=== PATIENT | male | born 1975 | race Hispanic/Latino ===

== ENCOUNTER 2017-04-27 10:40 | Observation (INO) | payer BC, SELFPAY ==
[2017-04-27 11:19] LABS: #Basophils 0.1 thou/uL (0.0-0.2); #Eosinphils 0.1 thou/uL (0.0-0.7); #Lymphocytes 1.3 thou/uL (1.20-3.40); #Monocytes 0.6 thou/uL (0.11-0.59); #Neutrophils 4.6 thou/uL (1.40-6.50); %Basophils 0.9 % (0.0-1.0); %Eosinophils 1.7 % (0.0-10.0); %Lymphocytes 19.5 % (21.0-51.0); Hematocrit 44.5 % (42.0-52.0); Mean Platelet Volume 7.4 fL (7.4-10.4); Red Blood Cell (RBC) Count 4.75 mill/uL (4.70-6.10); White Blood Cell (WBC) Count 6.7 thou/uL (4.8-10.8)
[2017-04-27 11:41] LABS: ALT (SGPT) 30 U/L (8-55); AST (SGOT) 27 U/L (5-34); Alkaline Phosphatase 102 U/L (40-150); Anion Gap 11 mmol/L (10-20); BUN (Urea Nitrogen) 24 mg/dL (8.9-20.6); Bilirubin, Total 0.8 mg/dL (0.2-1.2); CK (CPK) 387 U/L (30-200); Calc. Creatinine Clearance 0 mL/min (70-130); Calcium 9.5 mg/dL (7.8-10.44); Carbon Dioxide 24 mmol/L (22-29); Chloride 105 mmol/L (98-107); Estimated GFR-MDRD 72; Globulin 2.9 g/dL (2.4-3.5); Protein, Total 7.2 g/dL (6.0-8.3)
[2017-04-27 11:44] LABS: Troponin I Less than 0.010 ng/mL (< 0.028)
[2017-04-27] MEDS ORDERED: diphenhydrAMINE 50 MG/ML VIAL ONE (11:47)
[2017-04-27] MEDS ORDERED: Metoclopramide HCl 10 MG/2 ML VIAL ONE (11:47)
[2017-04-27] MEDS ORDERED: Acetaminophen 500 MG TAB ONE (11:47)
--- NOTE | 2017-04-27 11:49 | CT ---
HEAD CT WITHOUT CONTRAST: DATE: 04/27/17. COMPARISON: 12/24/14. HISTORY: Pain and numbness, left-sided neurologic deficits and headaches. TECHNIQUE: Serial axial CT imaging at 5 mm intervals from vertex through the skull base without contrast. FINDINGS: Tie imaged paranasal sinuses/mastoid air cells are well aerated. There is no displaced calvarial fr acture. No intracranial hemorrhage, midline shift, mass effect, or ventricular enlargement. IMPRESSION: No acute findings. POS: [facility]
[2017-04-27] MEDS ORDERED: Ondansetron ODT 4 MG TAB SL PRN (16:23)
[2017-04-27] MEDS ORDERED: Ondansetron HCl/PF 4 MG/2 ML Vial IVP PRN ×2 (16:23→16:25)
[2017-04-27] MEDS ORDERED: Acetaminophen 325 MG TAB PO PRN ×2 (16:23→16:25)
[2017-04-27] MEDS ORDERED: hydrALAZINE 20 MG/ML VIAL SLOW IVP PRN (16:25)
[2017-04-27] MEDS ORDERED: ALPRAZolam 0.25 MG TAB PO PRN (16:25)
[2017-04-27] MEDS ORDERED: Ondansetron ODT 4 MG TAB PO PRN (16:25)
[2017-04-27] MEDS ORDERED: Senokot 8.6 MG TAB PO PRN (16:25)
[2017-04-27] MEDS ORDERED: Nitroglycerin 0.4 MG TAB (25 Tab Bottle) PO PRN (16:25)
[2017-04-27] MEDS ORDERED: cloNIDine 0.1 MG TAB PO PRN (16:25)
[2017-04-27 17:24] VITALS: BMI 33.1
[2017-04-27] MEDS: Sodium Chloride 0.9% 1,000 ML IV SCH (18:18)
[2017-04-27 18:55] LABS: Amphetamine Detected (NotDetected); Methadone Not Detected (NotDetected); Methamphetamine Detected (NotDetected)
[2017-04-27] MEDS ORDERED: Lorazepam 1 MG TAB PO PRN (19:01)
--- NOTE | 2017-04-27 19:05 | HP ---
DATE OF ADMISSION: 04/27/2017 PRIMARY CARE PHYSICIAN: [facility]. CHIEF COMPLAINT: Stroke-like symptoms. HISTORY OF PRESENT ILLNESS: Patient is a 41-year-old male with migraines in the past, presented to the emergency room with above complaints. This morning, the patient felt lightheaded and few hours later, he started having weakness in the le ft hand and the left foot. His symptoms progressively got worse. He had some headache that was mil d in intensity without any radiation. No double vision, blurring of vision, facial symmetry or seiz ures reported. His headache was generalized. He denies any fevers, chills or neck stiffness. No c hest pain, palpitations, lightheadedness, dizziness reported. In the emergency room, initial vital signs showed temperature 98.1, respirations 18, pulse of 70, bl ood pressure 131/80 with O2 saturation 97% on room air. His initial CT scan of the brain was negati ve for acute findings. He received aspirin in the emergency room. His EKG showed sinus rhythm with out significant ST-T wave changes. PAST MEDICAL HISTORY: 1. History of migraine in 2015. 2. History of heat stroke 4-5 years ago. SOCIAL HISTORY: Reviewed with the patient and none. ALLERGIES: Patient is allergic to IODINE. CURRENT HOME MEDICATIONS: Reviewed with the patient and none. FAMILY HISTORY: No heart disease or strokes in his family. 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 He smokes on and off. He also drinks 2-3 beers on a glory ly basis. He recently abused cocaine. REVIEW OF SYSTEMS: The following complete review of systems was negative, unless otherwise mentione d in the HPI or below: CONSTITUTIONAL: Weight loss or gain, ability to conduct usual activities. SKIN: Rash, itching. EYES: Double vision, pain. ENT/MOUTH: Nose bleeding, neck stiffness, pain, tenderness. CARDIOVASCULAR: Palpitations, dyspnea on exertion, orthopnea. RESPIRATORY: Shortness of breath, wheezing, cough, hemoptysis, fever or night sweats. GASTROINTESTINAL: Poor appetite, abdominal pain, heartburn, nausea, vomiting, constipation, or diar charleen. GENITOURINARY: Urgency, frequency, dysuria, nocturia. MUSCULOSKELETAL: Pain, swelling. NEUROLOGIC/PSYCHIATRIC: Anxiety, depression. ALLERGY/IMMUNOLOGIC: Skin rash, bleeding tendency. PHYSICAL EXAMINATION: VITAL SIGNS: As discussed above. GENERAL: A 41-year-old male in no apparent distress. HEENT: Head atraumatic, normocephalic. Sclerae are anicteric. Moist mucous membranes. No oral le ozzy. NECK: Supple, no JVD, no carotid bruit. LUNGS: Clear to auscultation bilaterally. HEART: S1, S2 present. Regular rate and rhythm. ABDOMEN: Soft, nontender, bowel sounds present. EXTREMITIES: No edema or calf tenderness. NEUROLOGIC: Cranial nerves II-XII were normal on examination. Power was 5/5 in all extremities exc ept for weakness in the left hand and the left foot along with paraesthesias. 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 Vbobrl-gy-gwth test was normal. Reflexes were equivocal. PSYCHIATRY: Alert, awake and oriented x3. SKIN: Warm and dry. LYMPH NODES: No palpable lymph nodes in the neck. PERIPHERAL VASCULAR: Radial pulses palpable bilaterally. MUSCULOSKELETAL: No joint swelling or tenderness. LABORATORY AND X-RAY FINDINGS: CBC showed WBC 6.7 with hemoglobin 15.3, hematocrit 44.5, platelet 2 92. Chemistries showed sodium 136, potassium 4, chloride 105, bicarb 24, BUN 24, creatinine 1.1, gl ucose of 108. Troponins were normal. TSH 1.1. CT scan of the brain noncontrast by my review as discussed above. EKG by my review as discussed abo ve. IMPRESSION: 1. Suspected acute cerebrovascular accident. 2. History of migraines. 3. Obesity with a BMI of 33.1. 4. Ongoing tobacco and alcohol dependence. 5. History of cocaine abuse. 6. Chronic kidney disease stage 2. PLAN: The patient will be monitored in the stroke unit. We will get MRI of the brain. Start him o n aspirin with statins. Lifestyle modification was emphasized. We will place him on alcohol withdr awal protocol. Gentle IV hydration due to slightly elevated CK and minimal elevation of BUN. We wi ll consider Neurology evaluation based on the MRI. Lifestyle modification again extensively emphasi zed. Plan of care was discussed with the patient and he stated understanding.
--- NOTE | 2017-04-27 19:51 | MRI ---
MRI BRAIN NONCONTRAST: History: TIA. Left hand numbness. FINDINGS: There is no evidence of acute intracranial hemorrhage or infarct. The ventricles appear normal in si ze, shape, and position. There is no mass effect or shift of midline structures. Tiny peripheral foc i of increased FLAIR signal are stable compared to the prior study from 2015. IMPRESSION: No acute intracranial abnormalities are demonstrated. POS: [facility]
[2017-04-27] MEDS: Famotidine 20 MG TAB PO SCH (20:44)
[2017-04-27] MEDS: Docusate 100 MG CAP PO SCH (20:44)
[2017-04-27] MEDS ORDERED: Atorvastatin Calcium 10 MG TAB PO SCH (21:00)
[2017-04-28] MEDS: Sodium Chloride 0.9% 1,000 ML IV SCH (04:17)
[2017-04-28] MEDS ORDERED: Aspirin 325 mg Enteric Coated Tablet PO SCH (09:00)
[2017-04-28] MEDS: Docusate 100 MG CAP PO SCH (09:02)
[2017-04-28] MEDS: Famotidine 20 MG TAB PO SCH (09:02)
[2017-04-28 11:43] VITALS: TEMP 98.4
--- NOTE | 2017-04-28 13:04 | DIS ---
DATE OF ADMISSION: 04/27/2017 DATE OF DISCHARGE: 04/28/2017 DISCHARGE DISPOSITION: Home. FOLLOWUP: [facility] in one week. The patient was seen and examined on the day of discharge. Denies any new complaints. Left hand we akness has somewhat improved. DISCHARGE MEDICATIONS: Aspirin 325 mg daily and Pravastatin 20 mg daily. The patient was extensively counseled to quit drug use. BRIEF HOSPITAL COURSE: Patient is a 41-year-old male with migraines in the past, presented to the hospital with stroke-like symptoms. He had weakness in his left hand and his left foot aretha g with paresthesias. Please refer to the history and physical for further details. The patient was admitted to the hospital with a diagnosis of suspected acute CVA. An MRI of the bra in was negative for acute CVA. Echocardiogram showed normal left ventricular ejection fraction of 6 0%-65% with normal diastolic dysfunction. Urine drug screen was positive for amphetamines and cocai ne. Lifestyle modification was emphasized. He was advised to continue aspirin. An outpatient Neur ology followup has been recommended. FINAL DIAGNOSES: 1. Suspected small vessel cerebrovascular accident, probably precipitated by vasospasm. 2. Polysubstance abuse. The patient was positive for cocaine and amphetamines. 3. Ongoing tobacco abuse. 4. Chronic alcohol use. 5. History of migraines. 6. Obesity with body mass index 35. 7. Chronic kidney disease stage 2. SIGNIFICANT LABORATORY DATA: Cardiac enzymes normal. TSH 1.1, fasting lipid showed triglycerides 8 8, cholesterol 155, LDL 102, HDL 35. Plan of care was discussed with the patient and he stated understanding.
[2017-04-28 13:25] VITALS: BP 129/98
[2017-04-28] MEDS ORDERED: Enoxaparin Sodium 40 MG/0.4 ML SYRINGE SC SCH (21:00)
--- NOTE | 2017-06-05 16:04 | EKG ---
Test Reason : Blood Pressure : / mmHG Vent. Rate : 065 BPM Atrial Rate : 065 BPM P-R Int : 156 ms QRS Dur : 078 ms QT Int : 396 ms P-R-T Axes : 011 006 001 degrees QTc Int : 411 ms Normal sinus rhythm Early repolarization Normal ECG Confirmed by GALLITO ROGERS MD ([id number]), order editor IDALIA FRANCISCO ([id number] on 06/05/2017 4:04:04 PM Referred By: Confirmed By:GALLITO ROGERS MD
== END 2017-04-28 13:36 | disposition home or self-care (01) ==
LOC: ERS 10:40 → 2SE 13:45
PROVIDERS: ADMIT Internal Medicine; ATTEND Internal Medicine
DX: R53.1 Weakness (principal); R20.2 Paresthesia of skin; N18.2 Chronic kidney disease, stage 2 (mild); G43.909 Migraine, unspecified, not intractable, without status migrainosus; F19.10 Other psychoactive substance abuse, uncomplicated; F14.10 Cocaine abuse, uncomplicated; F15.10 Other stimulant abuse, uncomplicated; F10.20 Alcohol dependence, uncomplicated; F17.200 Nicotine dependence, unspecified, uncomplicated; E66.9 Obesity, unspecified; Z68.35 Body mass index [BMI] 35.0-35.9, adult; Z91.041 Radiographic dye allergy status
CPT/HCPCS: 36415; 70450; 70551; 80053; 80061; 80306; 82550; 82553; 84443; 84484; 85025; 93005; 93306; 94760; 96361; 96374; 96375; 99406; G0378; G8978-GP-CK; G8979-GP-CK; G8980-GP-CK; G8987-GO-CJ; G8988-GO-CI; J1200; J2765

== ENCOUNTER 2018-11-27 11:13 | Emergency (ER) | payer BC, SELFPAY ==
[2018-11-27] MEDS ORDERED: Adacel (T-DAP) 0.5 ML SYRINGE ONE (12:21)
[2018-11-27] MEDS ORDERED: Morphine 4 MG/ML VIAL ONE (12:21)
--- NOTE | 2018-11-27 12:24 | RAD ---
LEFT HAND 3 VIEWS: HISTORY: Left thumb laceration. FINDINGS/IMPRESSION: No fracture or dislocation is seen. No radiopaque foreign body is identified. POS: [facility]
[2018-11-27] MEDS ORDERED: Lidocaine 4% Cream 5 GM TUBE w/ Tegaderm ONE (12:52)
[2018-11-27] MEDS ORDERED: Bacitracin Zinc 1 Packet ONE (12:52)
[2018-11-27] MEDS ORDERED: HYDROcodone/Acetaminophen 5/325 mg Tablet ONE (13:01)
== END 2018-11-27 13:15 | disposition home or self-care (01) ==
LOC: ERS 11:13
DX: S61.112A Laceration without foreign body of left thumb with damage to nail, initial encounter (principal); W27.0XXA Contact with workbench tool, initial encounter
CPT/HCPCS: 90471; 90715; 96372; J2270

== ENCOUNTER 2018-11-29 14:20 | Emergency (ER) | payer SELFPAY ==
[2018-11-29] MEDS ORDERED: Bacitracin Zinc 1 Packet ONE (16:08)
[2018-11-29] MEDS ORDERED: Lidocaine 4% Cream 5 GM TUBE w/ Tegaderm ONE (16:10)
== END 2018-11-29 16:45 | disposition home or self-care (01) ==
LOC: SCSER 14:20
DX: S68.022D Partial traumatic metacarpophalangeal amputation of left thumb, subsequent encounter (principal); Z79.891 Long term (current) use of opiate analgesic

== ENCOUNTER 2023-06-03 20:48 | Emergency (ER) | payer OTHER ==
[2023-06-03 21:35] LABS: #Basophils 0.1 thou/uL (0.0-0.2); #Eosinphils 0.2 thou/uL (0.0-0.7); #Monocytes 0.9 thou/uL (0.11-0.59); #Neutrophils 5.5 thou/uL (1.40-6.50); %Basophils 0.9 % (0.0-1.0); %Eosinophils 2.2 % (0.0-10.0); %Lymphocytes 26.1 % (21.0-51.0); %Monocytes 9.7 % (0.0-10.0); %Neutrophils 60.7 % (42.0-75.0); Hematocrit 41.2 % (42.0-52.0); Hemoglobin 14.6 g/dL (14.0-18.0); Mean Corpuscular HGB CONC 35.4 g/dL (32.0-36.0); Mean Corpuscular Hemoglobin 31.6 pg (27.0-31.0); Mean Corpuscular Volume 89.2 fl (78.0-98.0); Mean Platelet Volume 10.4 fL (7.4-10.4); Platelet Count 253 10x3/uL (130-400); RBC Distribution Width 12.7 % (11.5-14.5); Red Blood Cell (RBC) Count 4.62 mill/uL (4.70-6.10); White Blood Cell (WBC) Count 9.1 10x3/uL (4.8-10.8)
[2023-06-03 22:01] LABS: ALT (SGPT) 42 U/L (8-55); AST (SGOT) 29 U/L (5-34); Albumin 4.5 g/dL (3.5-5.0); Alkaline Phosphatase 81 U/L (40-110); Anion Gap 13 mmol/L (10-20); BUN (Urea Nitrogen) 24 mg/dL (8.9-20.6); Bilirubin, Total 0.7 mg/dL (0.2-1.2); Calc. Creatinine Clearance 0 mL/min (70-130); Calcium 9.3 mg/dL (7.8-10.44); Carbon Dioxide 23 mmol/L (22-29); Chloride 105 mmol/L (98-107); Estimated GFR 83; Globulin 2.4 g/dL (2.4-3.5); Glucose 97 mg/dL (70-105); Lipase 34 U/L (8-78); Potassium 3.9 mmol/L (3.5-5.1); Protein, Total 6.9 g/dL (6.0-8.3); Sodium 137 mmol/L (136-145)
[2023-06-03 22:04] LABS: Troponin I Less than 0.010 ng/mL (< 0.028)
[2023-06-04 00:01] LABS: Troponin I Less than 0.010 ng/mL (< 0.028)
== END 2023-06-04 01:45 | disposition home or self-care (01) ==
LOC: ERS 20:48
DX: R07.9 Chest pain, unspecified (principal)
CPT/HCPCS: 36415; 71045; 80053; 83690; 84484; 85025; 93005; 94760